=== PATIENT | female | born 1980 | race Caucasian/White ===

== ENCOUNTER 2016-09-14 15:57 | Emergency (ER) | payer OTHER ==
[2016-09-14 16:06] VITALS: BP 117/67
== END 2016-09-14 18:11 | disposition home or self-care (01) ==
LOC: ED 15:57
DX: J06.9 Acute upper respiratory infection, unspecified (principal); R51 Headache
CPT/HCPCS: 87804

== ENCOUNTER 2018-06-08 10:42 | Emergency (ER) | payer OTHER ==
[~2018-06-08] VITALS: Ht 162.6 cm; Wt 100.2 kg
[2018-06-08 10:44] VITALS: BP 145/93; Ht 162.6 cm; Wt 100.2 kg
== END 2018-06-08 12:27 | disposition home or self-care (01) ==
LOC: ED 10:42
DX: H10.9 Unspecified conjunctivitis (principal)

== ENCOUNTER 2020-06-04 09:58 | Emergency (ER) | payer OTHER ==
[~2020-06-04] VITALS: Ht 162.6 cm; Wt 99.8 kg
[2020-06-04 10:25] VITALS: Ht 162.6 cm; Wt 99.8 kg
[2020-06-04 14:51] VITALS: BP 145/88
== END 2020-06-04 14:26 | disposition home or self-care (01) ==
LOC: ED 09:58
DX: U07.1 COVID-19 (principal); B34.9 Viral infection, unspecified; E03.9 Hypothyroidism, unspecified